=== PATIENT | female | born 1960 | race Caucasian/White ===

== ENCOUNTER 2018-04-29 23:39 | Inpatient (IN) ==
[2018-04-30] MEDS ORDERED: 0.9 % Sodium Chloride 1,000 ML IVC ONE (00:16)
[2018-04-30] MEDS ORDERED: *HR* FentaNYL (PF) 100 MCG/2 ML VIAL IVP ONE (00:16)
[2018-04-30] MEDS ORDERED: Ondansetron 4 MG/2 ML VIAL IVP ONE ×3 (00:16→19:13)
--- NOTE | 2018-04-30 00:31 | Emergency Department Note ---
Disposition Clinical Impression: Acute occlusion of artery of lower extremity Disposition: Admitted As Inpatient Condition: Fair Forms: ED Satisfaction Letter Extremity Problem HPI - General Chief complaint: ED Extremity Problem,Nontraumatic Stated complaint: "here to be admitted for blood clot" Time Seen by Provider: 04/29/18 23:45 Source: patient, family Mode of arrival: private vehicle Limitations: no limitations Nursing Notes Reviewed: Yes Vital Signs Reviewed: Yes - History of Present Illness Pt Subjective Complaint: extremity pain (right foot) Onset (ago): day(s) (April 24 - pain in medial right foot began and noticed purple area on medial heel) Consistency: Worsening Injury Location: right (foot) Pain Scale: 8 Quality: burning, stabbing, sharp Radiation: none Improves with: immobilization, elevation Worsens with: weight bearing, walking Associated symptoms: Reports: change in appearance, swelling, other (purple spots on toes and top of foot; first noticed on the - worsening since then) . Denies: chest pain, shortness of breath, abdominal pain, back pain, fever, arthralgias, rash Context: trauma (right ankle injury in March - "Sprain") - Related Data Home Medications Medication Instructions Recorded Confirmed traZODone [TraZODone] 50 mg PO HS 12/05/15 04/29/18 Albuterol Sulfate [Ventolin Hfa] 2 puff IH Q4HR PRN 04/01/18 04/29/18 Cyclobenzaprine [Flexeril] 10 mg PO HS 04/29/18 04/29/18 Potassium Chloride [Klor-Con 10] 10 meq PO DAILY 04/29/18 04/29/18 Allergies Allergy/AdvReac Type Severity Reaction Status Date / Time acetaminophen [From Percocet] Allergy Hives Verified 04/29/18 19:29 meperidine [From Demerol] Allergy Swelling Verified 04/29/18 19:29 of Lip/Tongue/Throat Oxycodone [From Percocet] Allergy Hives Verified 04/29/18 19:29 All systems ED: reviewed and negative except as stated. Review of Systems: As Per HPI Constitutional: Denies: fever, chills, weakness Cardiovascular: Denies: chest pain, palpitations, dyspnea on exertion, orthopnea , edema, syncope Gastrointestinal: Denies: abdominal pain, nausea, vomiting Musculoskeletal: Denies: back pain, neck pain, joint swelling Neurological: Reports: numbness (right second toe), paresthesias. Denies: weakness Hematological/Lymphatic: Denies: easy bleeding, easy bruising Past Medical History - Past Medical History Attestation: Yes The following information was validated with the patient. 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 Absent: scleral icterus, conjunctival injection, periorbital swelling - ENT ENT exam: mucous membranes moist - Neck Neck exam: Present: normal inspection, full ROM, trachea midline - Respiratory Respiratory exam: Present: normal lung sounds bilaterally. Absent: respiratory distress - Cardiovascular Cardiovascular exam: Present: regular rate, normal rhythm - Extremities Exam Extremities exam: Present: full ROM, tenderness. Absent: normal capillary refill, joint swelling, calf tenderness - Expanded Lower Extremity Exam Hip/Pelvis exam: Present: full ROM Upper leg exam: Absent: tenderness Knee exam: Present: full ROM, knee extension intact. Absent: tenderness Lower leg exam: Present: Achilles tendon intact. Absent: tenderness, Homans' sign Ankle exam: Present: normal inspection, full ROM. Absent: tenderness, swelling Foot/toe exam: Present: tenderness, swelling (mild right), calcaneal tenderness 1 - purple, tender 2 - purple, numb 3 - purple 4 - patchy areas of cyanosis 5 - purple 6 - tender, patches of cyanosis Neurovascular/Tendon exam: Present: pulse deficit (normal palpable DP pulse in right foot, decreased right PT pulse), sensory deficit, extremity cold to touch. Absent: normal capillary refill, motor deficit, tendon deficit, pallor, normal fine/light touch, foot drop, significant pain with passive ROM of distal joint Gait: not tested/not observed - Neurological Exam Neurological exam: Present: alert, oriented X3, CN II-XII intact - Psychiatric Psychiatric exam: Present: normal affect, normal mood - Skin Skin exam: Present: warm, dry, intact Course Course Narrative: Patient presents from home with significant other for evaluation of "a clot or something in my leg." She states that she was sent here from [place] to be admitted because she might have some type of clot in her leg. She has had pain in her right foot since April 24. She saw her primary care provider who did some blood work. At that time she had just a small purple spot on the medial aspect of her right heel. Two days later she noticed some purple spots on the top of her right foot. The pain increased gradually as did the amount of cyanosis. This morning she noticed that her toes were mostly purple. She had exquisite pain when trying to bear weight or walk, so she went to the ER at [facility]. She was evaluated and told that she would need to be transferred to [place]. She signed out AGAINST MEDICAL ADVICE because she needed to go home and arrange for care of her two nieces who she has custody of. This was reportedly several hours ago. Per review of her ER records from the [facility] visit earlier today , the vascular surgeon, Dr. Roca was consulted. He recommended having the patient transferred here for ABIs and to be heparinized. Since the patient signed out AGAINST MEDICAL ADVICE. She was given a shot of Lovenox reportedly out of concern that she would not return or go to this hospital as was recommended. On exam, patient is mildly hypertensive, afebrile with normal oxygen saturation, normal pulse. Heart sounds are normal. No pulsatile mass in the abdomen. Normal pulses in the bilateral femoral arteries popliteal arteries and dorsalis pedis arteries. Slightly decreased pulse in the right posterior tibialis artery. She has cyanosis of the right first through fourth toes, worse on the plantar aspect. She also has patchy areas of cyanosis. On the dorsal aspect of the distal foot. She has significant tenderness on the medial plantar aspect of the right foot. Cap refill is delayed in the right foot. ABIs and pain meds ordered. Case was discussed with Dr. Bustos. We have also spoken with the physician who cared for this patient and [facility] earlier today. - Reevaluation(s) Reevaluation #1: Toes look better. Now the first and fourth toes are purple, but the others are pink. The entire foot is no longer cold. DP pulse is still normal. PT pulse is now very difficult to find. ELIESER's will be done once cardiovascular surgeon arrives. Time: 01:10 Reevaluation #2: No change in appearance. Pain is better after pain meds. ELIESER's are normal. Results discussed with Dr. Bustos. He recommends paging Dr. Mauricio. Time: 02:27 - Consultations Consultation #1: Case discussed with Dr. Mauricio. He recommends starting heparin, getting CTA Aorta with runoffs and admitting patient to Hospitalist. Time: 02:27 Vital Signs Temperature 98.1 F 04/29/18 23:44 Pulse Rate 83 04/29/18 23:44 Respiratory Rate 18 04/29/18 23:44 Blood Pressure 152/107 04/29/18 23:44 O2 Sat by Pulse Oximetry 95 04/29/18 23:44 Temperature 98.1 F 04/29/18 23:44 Pulse Rate 83 04/29/18 23:44 Respiratory Rate 18 04/29/18 23:44 Blood Pressure 152/107 04/29/18 23:44 O2 Sat by Pulse Oximetry 95 04/29/18 23:44 Oxygen Delivery Oxygen Delivery Room Air Extremity Problem, Nontraumati - Medical Records Medical records reviewed: Yes I reviewed the patient's medical records. - Lab Data Lab results reviewed: Yes I reviewed the patient's lab results. Lab results narrative: Lab results from 04/29 at [facility] reviewed. - EKG Data EKG attestation: Yes I reviewed and interpreted this EKG. EKG shows normal: sinus rhythm Rate: normal Rhythm: NSR Creighton/QRS: left axis deviation, IVCD When compared to previous EKG there are: no significant changes Interpretation: no acute changes, nonspecific ST-T wave changes
--- NOTE | 2018-04-30 00:39 | Emergency Department Note ---
START Narrative - START START: I have personally performed a face to face evaluation on this patient. I have reviewed and agree with the care plan. History and Exam by me shows: ELIESER and arterial studies, suspect arterial occlusion. will speak with Dr. Roca and admit for further management. Lovenox given at OSH>
[2018-04-30] MEDS ORDERED: *HR* Heparin 5,000 UNIT/ML VIAL IVP ONE (02:25)
[2018-04-30] MEDS ORDERED: Isovue-370 500 ML INFUS..BTL IV ONE (02:25)
[2018-04-30] MEDS ORDERED: *HR* Heparin 5,000 UNIT/ML VIAL IVP PRN ×4 (02:25→19:13)
[2018-04-30] MEDS ORDERED: Heparin 25,000 UNIT/500 ML D5W 25,000 UNIT/500 ML BAG IVC SCH (02:30)
[2018-04-30 02:57] LABS: Hematocrit 41.4 % (35.3-44.9); Hemoglobin 13.7 g/dL (11.5-15.4); Mean Corpuscular HGB Conc 33.1 g/dL (31.6-35.5); Mean Corpuscular Hemoglobin 29.2 pg (28.0-33.3); Mean Corpuscular Volume 88.3 fL (83.0-100.0); Mean Platelet Volume 9.5 fL (9.4-12.4); Platelet Count 273 K/mcL (140-400); Red Blood Count 4.69 M/mcL (3.82-4.97); Red Cell Distribution Width 13.1 % (11.5-14.5)
[2018-04-30 03:08] LABS: Prothrombin Time 10.8 Seconds (9.4-12.1)
[2018-04-30 03:11] LABS: Activated Partial Thrombo Time 41.6 Seconds (26.0-36.0)
[2018-04-30] MEDS ORDERED: Naloxone 0.4 MG/ML INJ IVP PRN ×3 (03:46→19:13)
[2018-04-30] MEDS ORDERED: 0.9 % Sodium Chloride 1,000 ML IVC SCH (04:00)
--- NOTE | 2018-04-30 04:02 | Internal Med History&Physical ---
Date of Encounter: 04/30/18 Time of Encounter: 03:56 Internal Medicine - H&P: HPI Chief complaint: Foot pain Admitted From: Emergency Dept Plans for Post Hospital Care: Home History of present illness: Ms. Melara is a 57 year old female with history of tobacco abuse, insomnia who presents to the ED with right lower extremity pain. The patient has been doing with this for about a week or so and she saw her primary care physician who ordered some laboratory workup and eventually the plan was to set her up with some Doppler studies of the lower extremities. The patient continued to worsen with discoloration of the right lower extremity toes with associated pain and numbness and she decided to go to the ED at [facility]. She had laboratory workup there that was unremarkable. It was suspected the patient has a case of peripheral arterial disease due to diminished pulses and vascular consulted by the ED and recommended a transfer to [place] and put on heparin. The patient left AGAINST MEDICAL ADVICE there but received a dose of Lovenox prior to leaving. She said she went home to take care of something and came back to [facility]'s ED where she had ABIs done and vascular where consulted again and recommended admission. The patient was started on a heparin drip. By the time I evaluated the patient she says her lower extremity started feeling much better and the discoloration of her lower extremities has significantly improved. She denies any fever, chills, nausea, vomiting, chest pain, shortness of breath, abdominal pain, diarrhea, constipation, urinary symptoms, or neurological symptoms. Past Med Surg Social Fam HX - Past Medical History Medical history: asthma, hypertension Psychiatric history: depression - Past Surgical History Additional surgical history: hysterectomy - Social History Smoking Status: Current every day smoker Smokeless Tobacco Status: No Alcohol use: none Drug use: none Internal Medicine - H&P: Meds traZODone [TraZODone] 50 mg PO HS 12/05/15 [History] Albuterol Sulfate [Ventolin Hfa] 2 puff IH Q4HR PRN 04/01/18 [History] Cyclobenzaprine [Flexeril] 10 mg PO HS 04/29/18 [History] Potassium Chloride [Klor-Con 10] 10 meq PO DAILY 04/29/18 [History] 3 Allergy/AdvReac Type Severity Reaction Status Date / Time acetaminophen [From Percocet] Allergy Hives Verified 04/29/18 19:29 meperidine [From Demerol] Allergy Swelling Verified 04/29/18 19:29 of Lip/Tongue/Throat Oxycodone [From Percocet] Allergy Hives Verified 04/29/18 19:29 All Systems PM: A 10-system review of systems was performed and is negative for pertinent findings except as documented above in the HPI. Review of systems: All systems reviewed are negative except for as mentioned above - Constitutional Vitals: Temp Pulse Resp BP Pulse Ox 98.1 F 76 14 128/85 96 04/29/18 23:44 04/30/18 02:35 04/30/18 03:39 04/30/18 03:39 04/30/18 02:35 Exam: GEN: NAD HEENT: AT, NC, No cyanosis, oral mucosa is moist, No JVD Lymphatics: No lymphadenoapthy Eyes: Extrocular muscles intact, anicteric CVS:RRR. S1, S2, No m/r/g RESP: CTAB ABD: Soft, NT, ND, +BS EXT: No edema, No rashes, 2+ DP, right big toe with dusky purplish color and tenderness right second toe and right third toe as well as right fourth toe are all pinkish in color NEURO: Nonfocal, CN II-XII intact, No focal motor or sensory deficits Psych: Cooperative, Not anxious or depressed Internal Med - H&P Results - Labs CBC & Chem 7: 04/30/18 02:43 - Assessment and plan (1) PAD (peripheral artery disease) Current Visit: Yes Status: Acute Assessment and plan: The patient has been started on heparin drip. Vascular is consulted. Risk factors of for include significant smoking history. Eventually the patient would need to be on aspirin possibly statin. We will check lipid panel and A1c. Nothing by mouth. A CTA runoff has been ordered. Pain control. (2) Tobacco abuse Current Visit: Yes Status: Acute Assessment and plan: Nicotine patch (3) DVT prophylaxis Current Visit: Yes Status: Acute Assessment and plan: The patient is on heparin drip - Time Spent With Patient Total time spent is greater than 50% in coordination of care (as documented) at patient's floor/unit and/or counseling patient:
[2018-04-30] MEDS ORDERED: Acetaminophen 325 MG TABLET PO PRN ×2 (05:24→19:13)
[2018-04-30 07:52] LABS: Estimated Average Glucose 120 mg/dl; Hemoglobin A1C 5.8 %
[2018-04-30 07:56] LABS: Basophils # 0.1 K/mcL (0.0-0.2); Basophils % 0.9 %; Eosinophils # 0.3 K/mcL (0.0-0.6); Eosinophils % 3.2 %; Hematocrit 39.5 % (35.3-44.9); Hemoglobin 13.1 g/dL (11.5-15.4); Immature Granulocytes % 0.5 % (0-4); Lymphocytes # 5.9 K/mcL (0.6-4.6); Lymphocytes % 57.2 %; Mean Corpuscular HGB Conc 33.2 g/dL (31.6-35.5); Mean Corpuscular Hemoglobin 29.1 pg (28.0-33.3); Mean Corpuscular Volume 87.8 fL (83.0-100.0); Mean Platelet Volume 9.5 fL (9.4-12.4); Monocytes # 0.6 K/mcL (0.0-1.3); Monocytes % 5.4 %; Neutrophils # 3.4 K/mcL (1.6-8.9); Platelet Count 258 K/mcL (140-400); Red Cell Distribution Width 13.3 % (11.5-14.5); Segmented Neutrophils % 32.8 %
[2018-04-30 08:01] LABS: Chol/HDL Ratio 3.7 (0-4.9)
[2018-04-30 08:03] LABS: BUN/Creatinine Ratio 21 (6-26); Blood Urea Nitrogen 19 mg/dL (6-20); Calcium 8.3 mg/dL (8.6-10.3); Carbon Dioxide 26 mEq/L (23-29); Chloride 103 mEq/L (98-107); Glucose 95 mg/dL (70-105); Magnesium 1.7 mg/dL (1.6-2.6); Osmolality,Calculated 290 (280-300); Potassium 3.5 mEq/L (3.5-5.1); Sodium 139 mEq/L (136-145); eGFR For African Americans > 60 (> 60); eGFR For Non-African Americans > 60 (> 60)
[2018-04-30 08:16] LABS: Thyroid Stimulating Hormone 4.189 mcIU/mL (0.340-5.600)
[2018-04-30] MEDS ORDERED: Nicotine 21 MG PATCH.TD24 TD SCH (09:00)
--- NOTE | 2018-04-30 12:45 | Event Note ---
Date of Encounter: 04/30/18 Time of Encounter: 10:50 Patient feels better at this time. Pain in her right leg has improved. Receiving IV heparin. Was evaluated by vascular surgery earlier today and plan for possible surgery later today. We will continue IV heparin. Monitor vital signs.
[2018-04-30] MEDS ORDERED: *HR* FentaNYL (PF) 100 MCG/2 ML VIAL ONE ×3 (13:06→17:18)
[2018-04-30] MEDS ORDERED: Lidocaine -MPF 2% 2 ML VIAL ONE ×2 (13:06→14:41)
[2018-04-30] MEDS ORDERED: Lidocaine -MPF 4% 5 ML AMPUL ONE (13:06)
[2018-04-30] MEDS ORDERED: Dexamethasone 4 MG/ML VIAL ONE (13:06)
[2018-04-30] MEDS ORDERED: Ondansetron 4 MG/2 ML VIAL ONE (13:06)
[2018-04-30] MEDS ORDERED: *HR* Rocuronium Bromide 50 MG/5 ML VIAL ONE (13:06)
[2018-04-30] MEDS ORDERED: *HR* Midazolam HCl 2 MG/2 ML VIAL ONE ×2 (13:06→14:30)
[2018-04-30] MEDS ORDERED: *HR* Propofol 200 MG/20 ML VIAL IVP ONE ×2 (13:06→17:18)
--- NOTE | 2018-04-30 13:29 | Anesthesia Evaluation PreOp ---
Date of Encounter: 04/30/18 Time of Encounter: 13:27 - Past History Planned Operation: Right leg thrombectomy Cardiac History: HTN, Other (peripheral vascular disease) Pulmonary History: Asthma ADVOCACY DIRECTOR History: Other (depression) Other Medical History: Other (BMI 40) Anesthesia History: No Prior Anesthetic Complications Alcohol Use: none Drug use: none Medications and Allergies traZODone [TraZODone] 50 mg PO HS 12/05/15 [History] Albuterol Sulfate [Ventolin Hfa] 2 puff IH Q4HR PRN 04/01/18 [History] Cyclobenzaprine [Flexeril] 10 mg PO HS 04/29/18 [History] Potassium Chloride [Klor-Con 10] 10 meq PO DAILY 04/29/18 [History] hydroCHLOROthiazide [Hydrochlorothiazide] 25 mg PO DAILY 04/30/18 [History] 3 Allergy/AdvReac Type Severity Reaction Status Date / Time acetaminophen [From Percocet] Allergy Hives Verified 04/29/18 19:29 meperidine [From Demerol] Allergy Swelling Verified 04/29/18 19:29 of Lip/Tongue/Throat Oxycodone [From Percocet] Allergy Hives Verified 04/29/18 19:29 - Meds/Allergy Pre-op Review Medications Reviewed: Yes Allergies Reviewed: Yes Beta Blockers on Current Med List: No Anesthesia Results - Labs 04/30/18 07:22 04/30/18 07:22 - Imaging EKG: report reviewed, image reviewed (SINUS RHYTHM MARKED LEFT AXIS DEVIATION) Anesthesia Exam Last Vital Signs Temp 98.0 F 04/30/18 11:26 Pulse 70 04/30/18 11:26 Resp 18 04/30/18 11:26 BP 129/87 04/30/18 11:26 Pulse Ox 93 04/30/18 11:26 Weight: 98 kg NPO (# of Hours): > 8 hrs - HEENT Pupil (Motor): Pupils equal, EOMI Mallampati: III Teeth: Missing, Poor dentition Oral Opening: Greater than 3 - ADVOCACY DIRECTOR LOC: Oriented - Cardiac Rhythm: Regular Murmur: None - Pulmonary Breath Sounds: bilateral Clear Respiratory Effort: Symmetrical Anesthesia Assess/Plan ASA Score: 3 Modified Roberto Scale for Level of Consciousness: Cooperative, oriented, and tranquil Anesthetic Plan: General Monitoring Plan: Standard Monitors, A-Line Recovery Plan: PACU
--- NOTE | 2018-04-30 13:57 | Vascular/Endovasc Consult Note ---
Date of Encounter: 04/30/18 Time of Encounter: 08:15 Assessment and Plan (1) PAD (peripheral artery disease) Current Visit: Yes Status: Acute Patient has most likely near thrombosis of a chronic atherosclerotic plaque of the right popliteal artery. Due to the critical nature in the obvious embolic events the patient needs surgery. The patient will be taken to the operating room today as an emergency. The IV heparin will be continued to the operating room un -abated. (2) Tobacco abuse Current Visit: Yes Status: Chronic Patient has chronic tobacco abuse. Patient is aware that all tobacco use must cease. - History of Present Illness Consult date: 04/30/18 Consult reason: Right foot ischemia Chief complaint: Right foot pain and discoloration History of present illness: Ms. Melara is a 57 year old female Was transferred from [place] [facility] ER 2 [facility] ER. Patient had developed discoloration and severe pain of the right foot early last week. The patient had been seen in the PCP office and she presented to the emergency room late in the evening due to severe pain and discoloration. I was contacted from [place] and recommended that the patient be heparinized and referred to [facility]. The patient checked out of the ER AMA but came back to the [facility] ER. She was then admitted and placed on the hospitalist service. The heparin was initiated. The patient was given a dose of Lovenox at the [place] ER. A CT angiogram was performed of the year aorta in the lower extremities. This demonstrated a critical lesion of greater than 95% in the right popliteal artery behind the patella and at the joint space. The vessels proximal and distal to this overall look normal. The left lower extremity does not have any similar findings. There are no findings to suggest aneurysm or dissection. Because of her symptoms and the findings I recommended that the patient go to the operating room as an emergency today. Agents risk factors include obesity and active tobacco abuse. Past Med Surg Social Fam HX - Past Medical History Medical history: asthma, hypertension, other Additional medical history: insomnia Psychiatric history: depression - Past Surgical History Additional surgical history: hysterectomy, gallbladder, bladder lifted x2 - Social History Smoking Status: Current every day smoker Smokeless Tobacco Status: No Alcohol use: none Drug use: none - Family History Mother Living Status: Age at : 71 Cause of : dementia Hx Family Respiratory Disorders: Yes Hx Family Cancer: No Hx Family GI Disorders: Yes Hx Family Genitourinary Disorders: No Hx Family Endocrine Disorder: Yes Hx Family Musculoskeletal Disorders: No Hx Family Neuromuscular Disorders: No Hx Family Neurologic Disorders: Yes (dementia) Hx Family HEENT Disorders: No Hx Family Autoimmune Disorders: No Hx Family Reproductive Disorders: No Hx Family Psychosocial Disorders: No Hx Family Medical Disorders: No Medications and Allergies traZODone [TraZODone] 50 mg PO HS 12/05/15 [History] Albuterol Sulfate [Ventolin Hfa] 2 puff IH Q4HR PRN 04/01/18 [History] Cyclobenzaprine [Flexeril] 10 mg PO HS 04/29/18 [History] Potassium Chloride [Klor-Con 10] 10 meq PO DAILY 04/29/18 [History] hydroCHLOROthiazide [Hydrochlorothiazide] 25 mg PO DAILY 04/30/18 [History] 3 Allergy/AdvReac Type Severity Reaction Status Date / Time acetaminophen [From Percocet] Allergy Hives Verified 04/29/18 19:29 meperidine [From Demerol] Allergy Swelling Verified 04/29/18 19:29 of Lip/Tongue/Throat Oxycodone [From Percocet] Allergy Hives Verified 04/29/18 19:29 All Systems Review: The remainder of the systems were reviewed and are negative Exam Vital Signs, Last 4 Hours Temp Pulse Resp BP Pulse Ox 04/30/18 11:26 98.0 F 70 18 129/87 93 General: Present: Conversant, No Apparent Distress, Well developed, Well nourished, Other (Obese) HEENT: Present: Atraumatic, Normocephaly, Trachea midline Neck: Absent: JVD Cardiac: Present: Reg Rate and Rhythm Neuro: Present: Alert and responsive, No focal deficits noted Abdomen: Present: Soft. Absent: Non-tender Vascular: Present: Other (Discoloration of the right forefoot and toes and heel region. She has a cyanotic appearance to this tissue. It is pain: Deep palpation. There are no blebs. Patient has a strongly palpable dorsalis pedis pulse but I do not palpate a posterior tibial pulse.) Consult Discharge Plan - Plan Referrals: Jarret Aparicio MD [Partnered Physician] - 05/08/18 2:30 pm
[2018-04-30] MEDS ORDERED: ceFAZolin 1,000 MG, Sodium Chloride IRRigation 1,000 ML IR ONE (14:00)
[2018-04-30] MEDS ORDERED: Heparin 1,000 UNITS/500 mL 1,500 ML ONE (14:04)
[2018-04-30] MEDS ORDERED: *HR* FentaNYL (PF) 100 MCG/2 ML VIAL IVP PRN ×2 (15:49→19:13)
[2018-04-30] MEDS ORDERED: *HR* OxyCODONE Immed Rel 5 MG TABLET PO PRN ×2 (15:49→19:13)
[2018-04-30] MEDS ORDERED: MORPHINE SUL Oral CONC 10 MG/0.5 ML ORAL.SYG SL PRN (15:49)
[2018-04-30] MEDS ORDERED: *HR* Labetalol 20 MG/4 ML SYRINGE IVP PRN ×2 (15:49→19:13)
[2018-04-30] MEDS ORDERED: *HR* Promethazine 25 MG/ML VIAL IVP PRN ×2 (15:49→19:13)
--- NOTE | 2018-04-30 15:49 | Anesthesia Procedures ---
Date of Encounter: 04/30/18 Time of Encounter: 14:25 Procedures: Anesthesia - Arterial Line Consent obtained: written consent Time out performed: Yes Sedation: Versed (mg): 2 Sedation: Fentanyl (mcg): 100 Supplemental Oxygen via Nasal Cannula (L/min): 8 (per mask) Local Anesthetic: Lidocaine 1% Size (Gauge): 20 Length (inches): 1 3/4 Technique Used: sterile prep, guide wire technique, other (ultrasound required) Post-Procedure: line taped into place Patient tolerated procedure: well Complications: none Site: Radial L Vitals: see anesthesia record
[2018-04-30] MEDS ORDERED: *HR* Heparin 5,000 UNIT/ML VIAL ONE (16:21)
--- NOTE | 2018-04-30 17:57 | Operative Note ---
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 The patient states that about 1 week ago she had the abrupt onset of pain and discoloration of her right foot. She came to the [facility] ER yesterday because of worsening of the pain and discoloration. Surprisingly the patient had maintain a palpable dorsalis pedis pulse. The patient has discoloration involving her forefoot and toes and heel. She has cyanotic changes consistent with blue toe phenomenon. There is mild weakness of the extension of her toes and ankle. There is mild decrease in sensation of the foot. There are no active ulcerations. She has a long history of tobacco abuse. The patient was admitted and placed on intravenous heparin. A CT angiogram was performed. This demonstrated a critical lesion of greater than 95% in the midportion of the right popliteal artery. Because of the severity of the patient's symptoms and physical findings and CT scan findings she was recommended to undergo emergent surgery today to prevent limb loss for the right lower extremity. Procedure After informed consent was obtained the patient was taken to the operating room. General endotracheal anesthesia was established under arterial line pressure monitoring. The patient was then taken from the cart and rotated into a prone position on the operating room table. The posterior aspect of the right leg and thigh and calf were sterilely prepped and draped. A timeout protocol was observed. An S shaped incision was made around the right popliteal fossa. This was based medially and carried across the popliteal crease and then inferiorly immediately lateral to the midline. Dissection was carried down through the skin and subcutaneous tissue. The deep fascia was opened. The lesser saphenous vein was identified and preserved. The nervous structures were avoided. The artery was identified by Doppler and then confirmed by palpation. Dissection was carried out proximally in the popliteal space to identify the artery and a vessel loop was placed around the vessel. It was then dissected distally. The dissection was carried distally to below the level of the tibial plateau. A heparin drip had been started upon admission this was continued during the time in the operating room. An additional bolus of 1000 units of heparin was administered prior to clamping. A longitudinal arteriotomy was then made of the widely dissected popliteal artery. It should be noted that the adjacent nerves and veins were preserved in this dissection. There were no findings of popliteal artery entrapment. Upon opening the vessel proximally 2.75 centimeter long embolus was discovered. This was a soft brownish with some reddish tint color material. This was somewhat spongy in character. 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 There was no finding of underlying popliteal artery stenosis or atherosclerosis. Therefore the septal dissector was used to lift the embolus up and out of the popliteal artery. It was submitted for permanent specimen. Inspection of the vessel proximally and distally revealed no other signs of plaque or disease. The vessel was allowed to flush both proximally and distally and then flushed with heparinized saline antegrade and retrograde. A patch angioplasty was then performed using bovine pericardium over this longitudinal arteriotomy of the popliteal artery. 6-0 Prolene suture was used to sew this patch into position. After appropriate backbleeding and flushing the artery was opened and pulsatile flow was restored into the right calf. The wound was then irrigated and hemostasis achieved. The fascia was closed using 2-0 Vicryl. The subcutaneous was closed using 3-0 Vicryl. Skin edges were closed using 4-0 Vicryl. A dry sterile dressing was applied. There were no intraoperative complications. The patient tolerated the procedure well. The patient was then rotated back onto the transportation cart in a supine position. The patient was then extubated. The right foot was warm and pink. The cyanosis to the toes was resolved and the patient demonstrated a deep hyperemic response to the forefoot and toes. There was a strongly palpable right dorsalis pedis pulse. The patient was then transported from the operating room to the recovery room in stable condition.
--- NOTE | 2018-04-30 18:40 | Electrocardiograph Report ---
[place] [id number] Test Date: 2018-04-30 Pat Name: Susy Melara Department: 103 Room: 2N14 Gender: F Human Resources Supervisor: LRS : [id number] Requested By: Ilda Singh Order Number: [id number] Reading MD: Chandler Herrera Measurements Intervals [place] Rate: 85 P: 30 SD: 137 QRS: -31 QRSD: 114 T: 4 QT: 401 QTc: 443 Interpretive Statements SINUS RHYTHM MARKED LEFT AXIS DEVIATION MINIMAL VOLTAGE CRITERIA FOR LVH, CONSIDER NORMAL VARIANT Electronically Signed On 04-30-2018 18:39:27 EDT by Chandler Herrera
--- NOTE | 2018-04-30 18:49 | Anesthesia Evaluation Post Op ---
Date of Encounter: 04/30/18 Time of Encounter: 18:48 Notes: Patient's vital signs have been reviewed. Patient is stable postoperatively and has adequately recovered from anesthesia. Patient is determined to have stable airway patency and respiratory function including respiratory rate and oxygen saturation. Patient has a stable heart rate, blood pressure and adequate hydration. Patients mental status is acceptable. Patients temperature is appropriate. Pain and nausea are adequately controlled. - Discharge PostOp Status: Transfer Patient to floor
[2018-04-30] MEDS: Heparin 25,000 UNIT/500 ML D5W 25,000 UNIT/500 ML BAG IVC SCH (19:43)
[2018-04-30] MEDS: traZODone 50 MG TABLET PO SCH (19:48)
[2018-04-30] MEDS: 0.9 % Sodium Chloride 1,000 ML IVC SCH (19:49)
[2018-04-30] MEDS: MORPHINE SUL Oral CONC 10 MG/0.5 ML ORAL.SYG SL PRN (19:49)
[2018-05-01] MEDS: 0.9 % Sodium Chloride 1,000 ML IVC SCH ×2 (05:48→16:02)
[2018-05-01] MEDS ORDERED: ceFAZolin 1,000 MG, Sodium Chloride IRRigation 1,000 ML IR ONE (06:00)
--- NOTE | 2018-05-01 09:13 | Vascular/[facility] Progress Note ---
Date of Encounter: 05/01/18 Time of Encounter: 08:00 - Assessment and plan (1) PAD (peripheral artery disease) Current Visit: Yes Status: Acute Patient has most likely near thrombosis of a chronic atherosclerotic plaque of the right popliteal artery. Due to the critical nature in the obvious embolic events the patient needs surgery. The patient will be taken to the operating room today as an emergency. The IV heparin will be continued to the operating room un -abated. (2) Tobacco abuse Current Visit: Yes Status: Chronic Patient has chronic tobacco abuse. Patient is aware that all tobacco use must cease. Vital Signs, Last 4 Hours Temp Pulse Resp BP Pulse Ox 05/01/18 07:16 98.0 F 106 18 113/76 95 - VTE Documentation of Mechanical Device: Intermittent pneumatic compression device Results 04/30/18 07:22 04/30/18 07:22 Lab Results, Last 24 hours 04/30/18 04/30/18 05/01/18 09:47 20:05 02:55 APTT 104.8 H D 57.1 H 61.5 H Consult Discharge Plan - Plan Referrals: Jarret Aparicio MD [Partnered Physician] - 05/08/18 2:30 pm
[2018-05-01] MEDS: hydroCHLOROthiazide 25 MG TABLET PO SCH (09:37)
[2018-05-01] MEDS: MORPHINE SUL Oral CONC 10 MG/0.5 ML ORAL.SYG SL PRN ×2 (09:38→16:01)
[2018-05-01] MEDS: Nicotine 21 MG PATCH.TD24 TD SCH (09:38)
[2018-05-01] MEDS: Heparin 25,000 UNIT/500 ML D5W 25,000 UNIT/500 ML BAG IVC SCH (09:42)
--- NOTE | 2018-05-01 14:23 | Vascular/[facility] Progress Note ---
Date of Encounter: 05/01/18 Time of Encounter: 08:15 - Assessment and plan (1) PAD (peripheral artery disease) Current Visit: Yes Status: Acute Patent right popliteal artery embolectomy. Perfusion to right foot is improved. Patient has some residual cyanosis distally suggestive of small particulate embolization. Therefore I would recommend patient continue on anticoagulation. Until the results of her diagnostic workup are completed I would recommend she stay on intravenous heparin if surgical intervention is necessary. The patient had material removed from the right popliteal artery and sent to pathology and at the time of my visit the pathology report is not available. Patient is to have echocardiogram. If this is not diagnostic the patient may require NICOLE and CT angiogram of the chest to rule out proximal source of embolus. (2) Tobacco abuse Current Visit: Yes Status: Chronic Patient has chronic tobacco abuse. Patient is aware that all tobacco use must cease. - Subjective Interval history: Right foot and toes are feeling better following surgery yesterday. Patient does not have pain in the right foot or toes. Patient had an uneventful night. Vital Signs, Last 4 Hours Temp Pulse Resp BP Pulse Ox 05/01/18 11:30 81 05/01/18 11:15 98.2 F 80 18 118/78 93 - Physical Examination General: Present: Conversant, No Apparent Distress, Well developed, Well nourished HEENT: Present: Atraumatic Neck: Absent: JVD Cardiac: Present: Reg Rate and Rhythm Neuro: Present: Alert and responsive, No focal deficits noted, Cranial nerves grossly intact, Motor nerves grossly intact, Sensory nerves grossly intact, Other (No sensory or motor deficits noted in the right foot and ankle.) Vascular: Present: Normal capillary refill, Pulse, normal (Palpable right dorsalis pedis pulse. I do not palpate a right posterior tibial pulse but a biphasic Doppler signal is present.), Color/Temperature (Patient has mild cyanotic changes involving the right first and third toe. This is clearly improved from preop. The temperature of the right foot and toes is improved from preop.), Surgical incisions (Patient has dry dressing over the right popliteal fossa incision.) - VTE Documentation of Mechanical Device: Intermittent pneumatic compression device Results 04/30/18 07:22 04/30/18 07:22 Lab Results, Last 24 hours 04/30/18 05/01/18 05/01/18 20:05 02:55 09:31 APTT 57.1 H 61.5 H 36.4 H Consult Discharge Plan - Plan Referrals: Jarret Aparicio MD [Partnered Physician] - 05/08/18 2:30 pm
--- NOTE | 2018-05-01 16:30 | Internal Med Progress Note ---
Date of Encounter: 05/01/18 Time of Encounter: 11:15 - Assessment and plan (1) PAD (peripheral artery disease) Current Visit: Yes Status: Acute Assessment and plan: Status post right-sided popliteal artery embolectomy. Postop day 1. Mild residual cyanosis. On IV heparin. Restless surgery following. Possible spongy material removed. Concern for atrial myxoma or atrial thrombus. 2-D echocardiogram does not reveal any thrombus or [id number]-padr-nif male. I discussed with cardiology. They recommended transesophageal echocardiogram. This will be done tomorrow. Moderate risk for complications. (2) Tobacco abuse Current Visit: Yes Status: Chronic Assessment and plan: On nicotine patch. (3) DVT prophylaxis Current Visit: Yes Status: Acute Assessment and plan: On IV heparin - Time Spent With Patient Total time spent is greater than 50% in coordination of care (as documented) at patient's floor/unit and/or counseling patient: - Subjective Interval history: Patient is feeling much better overall. She does have increased pain and swelling in her right leg although she does have good movement at her feet. Denies any chest pain or palpitations. She does complain of a headache. - Constitutional Vitals: Temp Pulse Resp BP Pulse Ox 98.7 F 88 20 100/48 94 05/01/18 15:03 05/01/18 15:03 05/01/18 15:03 05/01/18 15:03 05/01/18 15:03 General appearance: Present: cooperative, mild distress, A&O X 3, pleasant, answers questions appropriately - Neck Neck exam general surgery: Present: supple, trachea midline. Absent: lymphadenopathy - Respiratory Respiratory exam: Present: CTAB. Absent: accessory muscle use, rales, rhonchi, wheezes - Cardiovascular Cardiovascular exam: Present: RRR, +S1, +S2. Absent: diastolic murmur, gallop, rubs, systolic murmur - GI/Abdominal GI/Abdominal exam: Present: normal bowel sounds, soft, no peritoneal signs. Absent: distended, tenderness - Extremities Exam Extremities exam: Present: tenderness, warm, radial pulses palpable and symmetrical. Absent: calf tenderness, cyanotic, pedal edema Additional comments: Right lower extremity swelling and tenderness present - Neurological Exam Neurological exam: Present: CN II-XII intact, oriented X3, no focal deficits. Absent: facial droop, speech deficit - Skin Skin exam: Present: dry, intact Internal Medicine: Result - Labs CBC & Chem 7: 04/30/18 07:22 04/30/18 07:22 - ABG Interpretation ABG results: PT/INR, D-dimer PT 10.8 Seconds (9.4-12.1) 04/30/18 02:43 - Impressions Impressions Echocardiogram 05/01/18 19:13 Impressions: LVEF 60%. LV apex is not optimally visualized. Recommend repeat Limited study with Definity if warranted. Normal right ventricular structure and function. Indeterminate diastolic function. Mild mitral regurgitation. No pulmonary hypertension. Left Ventricular Wall Motion: Rest Echo Findings All wall segments showed normal motion. Findings: Study Quality * Technically adequate exam. ECG Findings * Normal sinus rhythm. Right Ventricle * Normal right ventricular structure and function. Left Ventricle * LVEF 60%. * Indeterminate diastolic function. * Normal LV chamber size, wall thickness and function. Left Atrium * Normal left atrial size. Right Atrium * Normal right atrial size. Aortic Valve * No aortic regurgitation. * Trileaflet aortic valve. * No aortic stenosis. Mitral Valve * Normal mitral valve structure. * No mitral stenosis. * Mild mitral regurgitation. Tricuspid Valve * Tricuspid valve not well visualized. * Trace tricuspid regurgitation. * Estimated RA pressure is 3 mmHg. * Estimated RVSP is 32 mmHg. * No pulmonary hypertension. Pulmonic Valve * Pulmonic valve is not well visualized. * No pulmonic stenosis. * No pulmonic regurgitation. Pulmonary Artery * Pulmonary artery not well visualized. Aorta * Not well visualized. Pericardium * There is no pericardial effusion present. Interatrial Septum * No evidence of PFO by color Doppler. IVC * Normal IVC dimensions and inspiratory collapse. - VTE Documentation of Mechanical Device: Intermittent pneumatic compression device Consult Discharge Plan - Plan Referrals: Jarret Aparicio MD [Partnered Physician] - 05/08/18 2:30 pm
[2018-05-01] MEDS ORDERED: 0.9 % Sodium Chloride 1,000 ML IVC SCH (16:32)
[2018-05-01] MEDS ORDERED: MORPHINE SUL Oral CONC 10 MG/0.5 ML ORAL.SYG SL PRN (18:00)
[2018-05-01] MEDS: traZODone 50 MG TABLET PO SCH (20:53)
[2018-05-02 04:20] LABS: Basophils # 0.1 K/mcL (0.0-0.2); Basophils % 0.5 %; Eosinophils # 0.1 K/mcL (0.0-0.6); Eosinophils % 0.9 %; Hemoglobin 11.7 g/dL (11.5-15.4); Immature Granulocytes % 0.6 % (0-4); Lymphocytes # 5.1 K/mcL (0.6-4.6); Lymphocytes % 44.8 %; Mean Corpuscular HGB Conc 32.5 g/dL (31.6-35.5); Mean Corpuscular Hemoglobin 28.7 pg (28.0-33.3); Mean Corpuscular Volume 88.2 fL (83.0-100.0); Mean Platelet Volume 9.7 fL (9.4-12.4); Monocytes # 0.6 K/mcL (0.0-1.3); Neutrophils # 5.4 K/mcL (1.6-8.9); Platelet Count 230 K/mcL (140-400); Red Blood Count 4.08 M/mcL (3.82-4.97); Red Cell Distribution Width 13.7 % (11.5-14.5); Segmented Neutrophils % 48.2 %
[2018-05-02 04:40] LABS: BUN/Creatinine Ratio 18 (6-26); Blood Urea Nitrogen 14 mg/dL (6-20); Carbon Dioxide 26 mEq/L (23-29); Chloride 109 mEq/L (98-107); Glucose 104 mg/dL (70-105); Osmolality,Calculated 293 (280-300); Potassium 3.7 mEq/L (3.5-5.1); Sodium 141 mEq/L (136-145); eGFR For African Americans > 60 (> 60); eGFR For Non-African Americans > 60 (> 60)
[2018-05-02] MEDS: hydroCHLOROthiazide 25 MG TABLET PO SCH (08:59)
[2018-05-02] MEDS: Nicotine 21 MG PATCH.TD24 TD SCH (08:59)
--- NOTE | 2018-05-02 09:33 | Vascular/[facility] Progress Note ---
Date of Encounter: 05/02/18 Time of Encounter: 09:30 - Assessment and plan (1) PAD (peripheral artery disease) Current Visit: Yes Status: Acute Patent right popliteal artery embolectomy. TTE non diagnostic. For NICOLE today. If this is non diagnostic recommend CTA of chest. Ambulate. (2) Tobacco abuse Current Visit: Yes Status: Chronic Patient has chronic tobacco abuse. Patient is aware that all tobacco use must cease. - Subjective Interval history: Patient does not have pain in the right foot or toes. Patient had an uneventful night. Vital Signs, Last 4 Hours Temp Pulse Resp BP Pulse Ox 05/02/18 07:42 98.0 F 94 18 120/72 94 - Physical Examination General: Present: Conversant, No Apparent Distress Vascular: Present: Cyanosis (right forefoot and toes), Color/Temperature (right toes and forefoot cool), Surgical incisions (clean and dry) - VTE Documentation of Mechanical Device: Intermittent pneumatic compression device Results 05/02/18 04:05 05/02/18 04:05 Lab Results, Last 24 hours 05/01/18 05/01/18 05/02/18 09:31 17:30 04:05 WBC 11.3 H Hgb 11.7 Hct 36.0 Plt Count 230 APTT 36.4 H 56.0 H D Sodium Potassium Chloride Carbon Dioxide BUN Creatinine Glucose Calcium 05/02/18 05/02/18 04:05 04:05 WBC Hgb Hct Plt Count APTT 56.4 H Sodium 141 Potassium 3.7 Chloride 109 H Carbon Dioxide 26 BUN 14 Creatinine 0.79 Glucose 104 Calcium 8.0 L Consult Discharge Plan - Plan Referrals: Jarret Aparicio MD [Partnered Physician] - 05/08/18 2:30 pm
[2018-05-02] MEDS: Heparin 25,000 UNIT/500 ML D5W 25,000 UNIT/500 ML BAG IVC SCH (12:10)
[2018-05-02] MEDS ORDERED: Lidocaine Viscous Oral Soln 15 ML SOLUTION MM PRN (12:14)
[2018-05-02] MEDS ORDERED: Tetracaine/Benzocaine/Butamben 200MG/SPRAY (100SPY/BOT) MM ONE (12:15)
[2018-05-02] MEDS ORDERED: 0.9 % Sodium Chloride 500 ML IVC ONE (12:15)
[2018-05-02] MEDS: *HR* FentaNYL (PF) 100 MCG/2 ML VIAL IVP PRN ×2 (13:00→13:05)
[2018-05-02] MEDS: *HR* Midazolam HCl 5 MG/5 ML VIAL IVP PRN ×3 (13:00→13:10)
--- NOTE | 2018-05-02 15:18 | Internal Med Progress Note ---
Date of Encounter: 05/02/18 Time of Encounter: 15:15 - Assessment and plan (1) PAD (peripheral artery disease) Current Visit: Yes Status: Acute Assessment and plan: Status post-embolectomy of the right popliteal artery and bovine patch angioplasty. Postop day 2. Patient doing better. Transesophageal echocardiogram showed a very small mobile echodensity attached to the noncoronary cusp of the aortic valve on the ventricular surface. This could be a possible source of the patient's embolus. We will await pathology results. Continue anticoagulation for now. Vascular surgery following. (2) Tobacco abuse Current Visit: Yes Status: Chronic Assessment and plan: On nicotine patch (3) DVT prophylaxis Current Visit: Yes Status: Acute Assessment and plan: On IV heparin - Time Spent With Patient Total time spent is greater than 50% in coordination of care (as documented) at patient's floor/unit and/or counseling patient: - Subjective Interval history: I evaluated patient earlier this morning. Was waiting for transesophageal echocardiogram. Complains of hunger but otherwise doing well. Pain is improved in her right lower extremity. Swelling is also improved. She is able to move her leg better. No fever or chills reported overnight. - Constitutional Vitals: Temp Pulse Resp BP Pulse Ox 97.8 F 85 20 178/97 97 05/02/18 12:29 05/02/18 12:29 05/02/18 12:29 05/02/18 12:29 05/02/18 12:29 General appearance: Present: cooperative, mild distress, A&O X 3, pleasant, answers questions appropriately - Neck Neck exam general surgery: Present: supple, trachea midline. Absent: lymphadenopathy - Respiratory Respiratory exam: Present: CTAB. Absent: accessory muscle use, rales, rhonchi, wheezes - Cardiovascular Cardiovascular exam: Present: RRR, +S1, +S2. Absent: diastolic murmur, gallop, rubs, systolic murmur - Extremities Exam Extremities exam: Present: warm, radial pulses palpable and symmetrical. Absent : calf tenderness, cyanotic, pedal edema Additional comments: Swelling and tenderness in right lower extremity improved - Neurological Exam Neurological exam: Present: CN II-XII intact, oriented X3, no focal deficits. Absent: facial droop, speech deficit - Skin Skin exam: Present: dry, intact Internal Medicine: Result - Labs CBC & Chem 7: 05/02/18 04:05 05/02/18 04:05 Labs: Short CBC 05/02/18 Range/Units 04:05 WBC 11.3 H (4.3-11.1) K/mcL Hgb 11.7 (11.5-15.4) g/dL Hct 36.0 (35.3-44.9) % Plt Count 230 (140-400) K/mcL Neutrophils # 5.4 (1.6-8.9) K/mcL BMP 05/02/18 04:05 Sodium 141 Potassium 3.7 Chloride 109 H Carbon Dioxide 26 BUN 14 Creatinine 0.79 Glucose 104 Calcium 8.0 L - ABG Interpretation ABG results: PT/INR, D-dimer PT 10.8 Seconds (9.4-12.1) 04/30/18 02:43 - VTE Documentation of Mechanical Device: Intermittent pneumatic compression device Consult Discharge Plan - Plan Referrals: Jarret Aparicio MD [Partnered Physician] - 05/08/18 2:30 pm Lincoln Mauricio MD [Partnered Physician] - 05/15/18 9:00 am
[2018-05-02] MEDS: traZODone 50 MG TABLET PO SCH (21:21)
[2018-05-03 04:33] LABS: Basophils # 0.1 K/mcL (0.0-0.2); Basophils % 0.7 %; Eosinophils # 0.1 K/mcL (0.0-0.6); Eosinophils % 1.4 %; Hematocrit 39.2 % (35.3-44.9); Hemoglobin 12.9 g/dL (11.5-15.4); Immature Granulocytes % 0.8 % (0-4); Immature Platelets 2.8 % (1.1-6.1); Lymphocytes % 50.7 %; Mean Corpuscular HGB Conc 32.9 g/dL (31.6-35.5); Mean Corpuscular Hemoglobin 29.3 pg (28.0-33.3); Mean Corpuscular Volume 89.1 fL (83.0-100.0); Mean Platelet Volume 9.7 fL (9.4-12.4); Monocytes # 0.6 K/mcL (0.0-1.3); Platelet Count 217 K/mcL (140-400); Red Cell Distribution Width 13.6 % (11.5-14.5); Segmented Neutrophils % 40.4 %
[2018-05-03 05:02] LABS: BUN/Creatinine Ratio 14 (6-26); Blood Urea Nitrogen 12 mg/dL (6-20); Calcium 8.6 mg/dL (8.6-10.3); Carbon Dioxide 27 mEq/L (23-29); Chloride 107 mEq/L (98-107); Glucose 101 mg/dL (70-105); Osmolality,Calculated 290 (280-300); Potassium 3.8 mEq/L (3.5-5.1); Sodium 140 mEq/L (136-145); eGFR For African Americans > 60 (> 60); eGFR For Non-African Americans > 60 (> 60)
[2018-05-03] MEDS: hydroCHLOROthiazide 25 MG TABLET PO SCH (07:47)
[2018-05-03] MEDS: Nicotine 21 MG PATCH.TD24 TD SCH (07:47)
[2018-05-03] MEDS: Heparin 25,000 UNIT/500 ML D5W 25,000 UNIT/500 ML BAG IVC SCH (09:52)
[2018-05-03 11:26] VITALS: BP 123/58
--- NOTE | 2018-05-03 12:32 | Vascular/[facility] Progress Note ---
Date of Encounter: 05/03/18 Time of Encounter: 12:30 - Assessment and plan (1) PAD (peripheral artery disease) Current Visit: Yes Status: Acute Patent right popliteal artery embolectomy. TTE non diagnostic. NICOLE results are in chart. Possible area of residual abnormal material on the ventricular aspect of the non-coronary cusp of the tricuspid aortic valve. Patient is stable from a vascular standpoint. Patient may be discharged at any time once the cardiology follow-up and conversion to oral anticoagulation is performed. The oral anticoagulation is for perfusion and enhancement to the right foot and toes. I would anticipate the patient will require at least 2-3 months of anticoagulation. Patient is to return to see me in 2 weeks for a routine postoperative follow-up. (2) Tobacco abuse Current Visit: Yes Status: Chronic Patient has chronic tobacco abuse. Patient is aware that all tobacco use must cease. - Subjective Interval history: Patient does not have pain in the right foot or toes. Patient had an uneventful night. Patient had NICOLE which demonstrated a small residual material on the non- coronary cusp of the tricuspid aortic valve. Patient has walked in the room without difficulty. She has no ischemic rest pain or nocturnal rest pain. Patient states she has normal sensation in her feet and toes. Vital Signs, Last 4 Hours Temp Pulse Resp BP Pulse Ox 05/03/18 11:23 98.4 F 102 18 123/58 97 - Physical Examination General: Present: Conversant, No Apparent Distress Cardiac: Present: Reg Rate and Rhythm, Normal S1 and S2, No Murmur. Absent: Irregular Rhythm Neuro: Present: Alert and responsive, No focal deficits noted, Cranial nerves grossly intact Vascular: Present: Pulse, normal (Patient has 2+ palpable right dorsalis pedis pulse.), Cyanosis (Patient has cyanosis of the right first, second, and third toes. The right fourth and fifth toes have improved coloration today as compared to yesterday.), Surgical incisions (Right popliteal fossa incision is clean and dry. It is healing well.) Abdomen: Present: Soft, Non-tender Skin: Present: No rashes noted on visualized skin - VTE Documentation of Mechanical Device: Intermittent pneumatic compression device Results 05/03/18 04:25 05/03/18 04:25 Lab Results, Last 24 hours 05/03/18 05/03/18 05/03/18 04:25 04:25 04:25 WBC 9.8 Hgb 12.9 Hct 39.2 Plt Count 217 APTT 56.8 H Sodium 140 Potassium 3.8 Chloride 107 Carbon Dioxide 27 BUN 12 Creatinine 0.87 Glucose 101 Calcium 8.6 Consult Discharge Plan - Plan Additional Instructions: Keep right popliteal fossa incision dry for a total of 5 days following surgery No manual labor or heavy lifting for 2 weeks. Referrals: Jarret Aparicio MD [Partnered Physician] - 05/08/18 2:30 pm Lincoln Mauricio MD [Partnered Physician] - 05/15/18 9:00 am
--- NOTE | 2018-05-03 13:39 | Discharge Summary ---
- NOTES TO OUTPATIENT PROVIDER Notes to Outpatient Provider: Patient was hospitalized here with right lower extremity pain and swelling with purplish discoloration. She was evaluated by vascular surgery and underwent angiogram which showed embolus in the right popliteal artery which was removed. Pathology report shows it to be possible embolus. NICOLE was done which showed a very small mobile echodensity attached to the noncoronary cusp of the aortic valve on the ventricular surface. Patient has been on anticoagulation. She is stable to be discharged on oral Anticoagulation. She is to be on anticoagulation for at least 2-3 months. She still has purplish discoloration on her toes. She will follow up with vascular surgery and cardiology after discharge. Date of Encounter: 05/03/18 Time of Encounter: 11:30 - Discharge Diagnosis (1) Acute occlusion of artery of lower extremity Priority: Primary Status: Acute (2) PAD (peripheral artery disease) Priority: Secondary Status: Acute (3) Tobacco abuse Priority: Secondary Status: Chronic (4) DVT prophylaxis Priority: Secondary Status: Acute (5) Aortic thromboembolism Priority: Secondary Status: Acute Hospital course: Ms. Melara is a 57 year old female Patient with history of chronic tobacco abuse, hypertension who was hospitalized here with right lower extremity pain and swelling with purplish discoloration. This was believed to be due to acute arterial occlusion and she was started on intravenous heparin drip. She was evaluated by vascular surgery and underwent angiogram which showed embolus in the right popliteal artery which was removed. Pathology report shows it to be possible embolus. NICOLE was done which showed a very small mobile echodensity attached to the noncoronary cusp of the aortic valve on the ventricular surface. Patient has been on anticoagulation. At this time, she is stable to be discharged on oral Anticoagulation. She is to be on anticoagulation for at least 2-3 months. She still has purplish discoloration on her toes. She will follow up with vascular surgery and cardiology after discharge. Discharge discussed with: patient, nurse, budget consultant - Time Spent with Patient Total time spent providing and/or coordinating discharge services: Greater than 30 minutes (40 min) - Discharge Medications Prescriptions: Rivaroxaban [Xarelto] 15 mg PO BID #42 tablet Rivaroxaban [Xarelto] 20 mg PO DAILY #30 tablet Home Medications: traZODone [TraZODone] 50 mg PO HS 01/17/16 [History] Albuterol Sulfate [Ventolin Hfa] 2 puff IH Q4HR PRN 04/01/18 [History] Cyclobenzaprine [Flexeril] 10 mg PO HS 04/29/18 [History] Potassium Chloride [Klor-Con 10] 10 meq PO DAILY 04/29/18 [History] hydroCHLOROthiazide [Hydrochlorothiazide] 25 mg PO DAILY 04/30/18 [History] Rivaroxaban [Xarelto] 15 mg PO BID #42 tablet 05/03/18 [Rx] Rivaroxaban [Xarelto] 20 mg PO DAILY #30 tablet 05/03/18 [Rx] Allergies/Adverse Reactions: 3 Allergy/AdvReac Type Severity Reaction Status Date / Time acetaminophen [From Percocet] Allergy Hives Verified 04/29/18 19:29 meperidine [From Demerol] Allergy Swelling Verified 04/29/18 19:29 of Lip/Tongue/Throat Oxycodone [From Percocet] Allergy Hives Verified 04/29/18 19:29 Date of admission: 04/30/18 04:37 Primary care physician: Wendy Cannon, Consults: 05/01/18 20:07 Consult to Retail Banker [CONS] Routine Reason for SW Consult: D/C PLANNING. Discharging clinician: Luis Angel Farmer Anticipated date of discharge: 05/03/18 - Constitutional Vitals: Temp Pulse Resp BP Pulse Ox 98.4 F 102 18 123/58 97 05/03/18 11:23 05/03/18 11:23 05/03/18 11:23 05/03/18 11:23 05/03/18 11:23 General appearance: Present: cooperative, mild distress, A&O X 3, pleasant, answers questions appropriately - Respiratory Respiratory exam: Present: CTAB. Absent: accessory muscle use, rales, rhonchi, wheezes - Cardiovascular Cardiovascular exam: Present: RRR, +S1, +S2. Absent: diastolic murmur, gallop, rubs, systolic murmur - GI/Abdominal GI/Abdominal exam: Present: normal bowel sounds, soft, no peritoneal signs. Absent: distended, tenderness - Extremities Exam Extremities exam: Present: warm, radial pulses palpable and symmetrical. Absent : calf tenderness, cyanotic, pedal edema Additional comments: Purplish discoloration of the plantar surface of the toes on right foot - Patient Status Disposition: Home, Self-Care Condition: Good Functional capacity at discharge: independent ambulation Overall status at discharge: patient is progressing back to baseline - Discharge Instructions Instructions: Rivaroxaban (By mouth), Peripheral Vascular Disorders (DC) Follow Up With: Jarret Aparicio MD [Partnered Physician] - 05/08/18 2:30 pm Lincoln Mauricio MD [Partnered Physician] - 05/15/18 9:00 am Rainer Geiger [Partnered Physician] - (In 1-2 weeks for aortic valve thrombus Office will call patient at home with follow up appointment) Additional Instructions: Keep right popliteal fossa incision dry for a total of 5 days following surgery No manual labor or heavy lifting for 2 weeks. - Diet and Activity Activity: increase activity as tolerated Diet: low fat, low cholesterol, low salt diet - VTE Documentation of Mechanical Device: Intermittent pneumatic compression device
[2018-05-03] MEDS ORDERED: *HR* Rivaroxaban 15 MG TABLET PO SCH (17:00)
== END 2018-05-03 14:15 | disposition home or self-care (01) | DRG 181 ==
LOC: 3BNU 23:39 → EMEROO 23:39 → 2NNU 04-30 04:14 → SUATTDRO 04-30 04:37 → 2NNU 04-30 05:28
PROVIDERS: ADMIT Internal Medicine; ATTEND Internal Medicine

== ENCOUNTER 2019-10-29 11:10 | Observation (INO) ==
[2019-10-29] MEDS ORDERED: Ondansetron 4 MG/2 ML VIAL IVP PRN (16:00)
[2019-10-29] MEDS ORDERED: Naloxone 0.4 MG/ML INJ IVP PRN (16:00)
[2019-10-29] MEDS ORDERED: Nitroglycerin 0.4 MG TAB.SUBL SL PRN (16:04)
[2019-10-29] MEDS ORDERED: Isovue-370 500 ML BOTTLE IVP ONE (16:13)
[2019-10-29 17:35] LABS: Basophils # 0.1 K/mcL (0.0-0.2); Basophils % 0.5 %; Eosinophils # 0.1 K/mcL (0.0-0.6); Eosinophils % 1.1 %; Hematocrit 44.6 % (35.3-44.9); Hemoglobin 14.8 g/dL (11.5-15.4); Immature Granulocytes % 0.2 % (0-4); Lymphocytes % 43.1 %; Mean Corpuscular HGB Conc 33.2 g/dL (31.6-35.5); Mean Corpuscular Volume 90.5 fL (83.0-100.0); Mean Platelet Volume 10.2 fL (9.4-12.4); Monocytes # 0.7 K/mcL (0.0-1.3); Monocytes % 7.1 %; Neutrophils # 4.5 K/mcL (1.6-8.9); Platelet Count 258 K/mcL (140-400); Red Blood Count 4.93 M/mcL (3.82-4.97); Red Cell Distribution Width 12.8 % (11.5-14.5); White Blood Count 9.3 K/mcL (4.3-11.1)
[2019-10-29 17:47] LABS: INR 0.9; Prothrombin Time 10.7 Seconds (9.4-12.1)
[2019-10-29 17:50] LABS: Activated Partial Thrombo Time 29.8 Seconds (26.0-36.0)
[2019-10-29 18:03] LABS: Alanine Aminotransferase 18 Units/L (7-52); Albumin 3.9 g/dL (3.5-5.7); Albumin/Globulin Ratio 1.4 (1.1-2.2); Alkaline Phosphatase 71 Units/L (34-104); Aspartate Amino Transferase 18 Units/L (13-39); BUN/Creatinine Ratio 20 (6-26); Bilirubin,Total 0.5 mg/dL (0.3-1.0); Blood Urea Nitrogen 17 mg/dL (6-20); Calcium 9.7 mg/dL (8.6-10.3); Carbon Dioxide 34 mEq/L (23-29); Chloride 101 mEq/L (98-107); Globulin 2.7 g/dL (2.4-3.5); Glucose 111 mg/dL (70-105); Magnesium 1.9 mg/dL (1.6-2.6); Osmolality,Calculated 300 (280-300); Potassium 3.5 mEq/L (3.5-5.1); Sodium 144 mEq/L (136-145); Total Protein 6.6 g/dL (6.4-8.9); eGFR For African Americans > 60 (> 60); eGFR For Non-African Americans > 60 (> 60)
[2019-10-29] MEDS: *HR* Heparin 5,000 UNIT/ML VIAL SQ SCH (18:46)
[2019-10-29] MEDS ORDERED: Perflutren Lipid Microsphere 1.3 ML in 0.9 % Sodium Chloride 8.7 ML IVP ONE (21:31)
[2019-10-29] MEDS: Ipratropium/Albuterol Neb 3 ML IH SCH (21:58)
[2019-10-30] MEDS: Ipratropium/Albuterol Neb 3 ML IH SCH ×2 (03:41→10:54)
[2019-10-30] MEDS: *HR* Heparin 5,000 UNIT/ML VIAL SQ SCH (05:40)
[2019-10-30] MEDS ORDERED: Regadenoson 0.4 MG/5 ML SYRINGE IVP ONE (06:48)
[2019-10-30] MEDS ORDERED: Aspirin 81 MG TAB.CHEW PO SCH (09:00)
[2019-10-30] MEDS ORDERED: Ipratropium/Albuterol Neb 3 ML IH PRN (12:30)
[2019-10-30 15:05] VITALS: BP 106/68
== END 2019-10-30 17:10 | disposition home or self-care (01) ==
LOC: 3BNU
PROVIDERS: ADMIT Internal Medicine; ATTEND Internal Medicine